=== PATIENT | male | born 1940 | race Caucasian/White ===

== ENCOUNTER 2018-07-05 20:39 | Inpatient (IN) | payer OTHER, MEDICAID ==
[~2018-07-05] VITALS: Ht 177.8 cm; Wt 66.7 kg
[2018-07-05 20:42] VITALS: Ht 177.8 cm; Wt 66.7 kg
[2018-07-05 21:16] LABS: BASOPHIL % 0.5 % (0-2); PLATELET COUNT 216 x10^3mcL (130-400)
[2018-07-05 21:30] LABS: CALCIUM 9.1 mg/dL (8.5-10.1); CARBON DIOXIDE 30.5 mmol/L (21-32); CHLORIDE SERUM 107 mmol/L (98-107); CREATININE SERUM 1.3 mg/dL (0.7-1.3); GLUCOSE SERUM 117 mg/dL (74-106); POTASSIUM SERUM 4.6 mmol/L (3.5-5.1); SODIUM SERUM 144 mmol/L (136-145)
[2018-07-05 21:34] LABS: ALBUMIN 3.6 g/dL (3.4-5.0); ALKALINE PHOSPHATASE 97 U/L (46-116); ALT/SGPT 27 U/L (16-63); AST/SGOT 28 U/L (15-37); LIPASE 132 IU/L (73-393); TOTAL PROTEIN, SERUM 6.9 g/dL (6.4-8.2)
[2018-07-05] MEDS ORDERED: CLOPIDOGREL75 M1 PO (22:16)
[2018-07-05] MEDS ORDERED: LISINOPRIL2.5 MG PO ×2 (22:17)
[2018-07-05] MEDS ORDERED: BREO ELLIPTA1 PO1 IH (22:18)
[2018-07-05] MEDS ORDERED: CARVEDILOL3.125 M1 PO (22:18)
[2018-07-05] MEDS ORDERED: LIPITOR20 MG PO (22:19)
[2018-07-05 23:35] VITALS: BP 142/67
[2018-07-05 23:47] LABS: MAGNESIUM 1.9 mg/dL (1.8-2.4); PHOSPHOROUS 3.1 mg/dL (2.5-4.9)
[2018-07-06 01:03] LABS: CHOLESTEROL/HDL RATIO 3.5
[2018-07-06 03:10] LABS: microscopic required? NO
[2018-07-06 03:23] LABS: urine erythrocyte NEGATIVE (NEGATIVE)
[2018-07-06 04:07] LABS: AMPHETAMINE QUAL UR NONE DETECTED (See below)
[2018-07-06 05:20] VITALS: BP 142/67
[2018-07-06 05:52] VITALS: BP 104/63
[2018-07-06 08:19] LABS: BASOPHIL % 0.2 % (0-2); PLATELET COUNT 215 x10^3mcL (130-400)
[2018-07-06 08:25] LABS: RED CELL DISTRIBUTION WIDTH 15.7 % (11.5-14.5)
[2018-07-06 08:33] VITALS: BP 147/70
[2018-07-06 08:41] LABS: CALCIUM 9.4 mg/dL (8.5-10.1); CHLORIDE SERUM 107 mmol/L (98-107); CREATININE SERUM 1.4 mg/dL (0.7-1.3); GLUCOSE SERUM 168 mg/dL (74-106); MAGNESIUM 1.9 mg/dL (1.8-2.4); PHOSPHOROUS 3.8 mg/dL (2.5-4.9); SODIUM SERUM 145 mmol/L (136-145)
[2018-07-06 08:48] LABS: POTASSIUM SERUM 5.7 mmol/L (3.5-5.1)
[2018-07-06 12:23] VITALS: BP 153/72
[2018-07-06 16:41] VITALS: BP 129/66
[2018-07-06 22:07] VITALS: BP 100/56
[2018-07-07 05:34] VITALS: BP 122/73
[2018-07-07 06:48] LABS: BASOPHIL % 0.3 % (0-2); PLATELET COUNT 214 x10^3mcL (130-400)
[2018-07-07 06:55] LABS: RED CELL DISTRIBUTION WIDTH 16.1 % (11.5-14.5)
[2018-07-07 07:31] LABS: CALCIUM 9.2 mg/dL (8.5-10.1); CARBON DIOXIDE 28.8 mmol/L (21-32); CHLORIDE SERUM 110 mmol/L (98-107); CREATININE SERUM 1.1 mg/dL (0.7-1.3); GLUCOSE SERUM 97 mg/dL (74-106); PHOSPHOROUS 3.4 mg/dL (2.5-4.9); POTASSIUM SERUM 5.2 mmol/L (3.5-5.1); SODIUM SERUM 147 mmol/L (136-145)
[2018-07-07 09:23] VITALS: BP 130/66
[2018-07-07 13:10] VITALS: BP 144/78
[2018-07-07 17:44] VITALS: BP 126/70
[2018-07-07 20:17] VITALS: BP 112/56
[2018-07-08 05:35] VITALS: BP 113/67
[2018-07-08 06:38] LABS: BASOPHIL % 0.4 % (0-2); PLATELET COUNT 207 x10^3mcL (130-400)
[2018-07-08 06:46] LABS: RED CELL DISTRIBUTION WIDTH 15.6 % (11.5-14.5)
[2018-07-08 06:47] LABS: CALCIUM 8.9 mg/dL (8.5-10.1); CARBON DIOXIDE 29.9 mmol/L (21-32); CHLORIDE SERUM 109 mmol/L (98-107); CREATININE SERUM 1.1 mg/dL (0.7-1.3); GLUCOSE SERUM 86 mg/dL (74-106); MAGNESIUM 1.9 mg/dL (1.8-2.4); PHOSPHOROUS 3.4 mg/dL (2.5-4.9); POTASSIUM SERUM 5.1 mmol/L (3.5-5.1); SODIUM SERUM 146 mmol/L (136-145)
[2018-07-08 09:14] VITALS: BP 113/53
[2018-07-08 09:17] VITALS: BP 112/53
[2018-07-08] MEDS ORDERED: LEVAQUIN750 MG PO (10:13)
[2018-07-08 11:23] VITALS: BP 112/53
== END 2018-07-08 12:38 | disposition home or self-care (01) | DRG 193 ==
LOC: ED 20:39 → DU 22:33
PROVIDERS: Emergency Medicine; ADMIT Internal Medicine
DX: J18.9 Pneumonia, unspecified organism (principal); N17.0 Acute kidney failure with tubular necrosis; R04.2 Hemoptysis; D35.01 Benign neoplasm of right adrenal gland; J43.9 Emphysema, unspecified; E78.1 Pure hyperglyceridemia; Z95.0 Presence of cardiac pacemaker; Z68.20 Body mass index [BMI] 20.0-20.9, adult; Z95.1 Presence of aortocoronary bypass graft; Z86.711 Personal history of pulmonary embolism; Z85.51 Personal history of malignant neoplasm of bladder; Z95.5 Presence of coronary angioplasty implant and graft; Z86.718 Personal history of other venous thrombosis and embolism; I25.10 Atherosclerotic heart disease of native coronary artery without angina pectoris; Z86.73 Personal history of transient ischemic attack (TIA), and cerebral infarction without residual deficits
CPT/HCPCS: 83880; 87804; 94150; J0456; J0696; J2930; J7030; J7050; J7620